=== PATIENT | male | born 1970 ===

== ENCOUNTER 2024-01-23 09:26 | Outpatient (CLI) | payer BC, SELFPAY ==
--- NOTE | ~2024-01-23 | MR_ITS ---
MRI of the left shoulder Technique: Axial proton-density fat-sat images, coronal proton density fat-sat and T2 fat-sat images, and sagittal T1-weighted and T2 fat-sat images were acquired. Clinical History: Pain Findings: There is [id number] AC joint degenerative change. Coracoclavicular, coracoacromial, a nd coracohumeral ligaments are intact. There are complete, full-thickness tears of the supraspinatus and infraspinatus tendons. Fluid-filled gap measures approximately 3.7 x 4.1 cm in extent. Subscapularis tendon demonstrates tearing of the transverse ligament fibers with partial thickness articular surface tearing which is moderate to high -grade degree. There is medial dislocation of the biceps tendon from the bicipital groove superiorly. There is intraarticular biceps tendinosis. No definite labral tear seen. The inferior glenohumeral ligament is intact. There is small glenohumeral joint effusion, with fluid passing through the rotator cuff defect into the subacromial/subdeltoid bursa. No degenerative change of the glenohumeral joint. No muscle atrophy or edema. Impression: Complete, full-thickness tears of the supraspinatus and infraspinatus tendons, as detailed above. Tearing of the distal subscapularis tendon, as above. Medial dislocation of the biceps tendon from the bicipital groove. AC joint degenerative change, as above. Reviewed, dictated and finalized at [facility]. Impression: Complete, full-thickness tears of the supraspinatus and infraspinatus tendons, as detailed above. Tearing of the distal subscapularis tendon, as above. Medial dislocation of the biceps tendon from the bicipital groove. AC joint degenerative change, as above.
== END 2024-01-23 09:27 ==
PROVIDERS: PCP Physician Assistant; Visit Provider Physician Assistant
DX: M75.122 Complete rotator cuff tear or rupture of left shoulder, not specified as traumatic (principal); S46.212A Strain of muscle, fascia and tendon of other parts of biceps, left arm, initial encounter; M19.012 Primary osteoarthritis, left shoulder; X58.XXXA Exposure to other specified factors, initial encounter
CPT/HCPCS: 73221